=== PATIENT | male | born 1945 | race Caucasian/White ===

== ENCOUNTER 2019-08-23 18:49 | Emergency (ER) | payer MEDICARE, OTHER, SELFPAY ==
[2019-08-23 19:06] VITALS: BP 112/73; PULSE 84; RESP 16; TEMP 36.1; O2SAT 98; BMI 23.1
--- NOTE | 2019-08-23 19:46 | ED_ITS ---
HPI - General Adult General Chief complaint: Diabetic Problem Stated complaint: thinks reaction to diabetes medication Time Seen by Provider: 08/23/19 19:41 Source: patient Mode of arrival: Ambulatory Limitations: no limitations History of Present Illness HPI narrative: Patient is a 73-year-old male here for evaluation of what he thinks is a reaction to his diabetic medication. He is on metformin and Trulicity. Has been on Trulicity for 6 months now. For the past several days he has had nausea and vomiting. This seems to be associated with eating. He states that he is vomiting food that he ate several hours/day prior. Does not seem to be having problems with liquids. Does have some generalized abdominal tenderness. Had labs drawn yesterday ordered by his primary provider for evaluation of this. Also was started on Prilosec which he states is not helping any of his symptoms. He does not have the results of his labs that were drawn yesterday. He states that he was told by his primary provider to stop taking the Trulicity. Patient is also describing lightheadedness with changing positions. He is concerned he is dehydrated Related Data Previous Rx's Medication Instructions Recorded metoclopramide HCl [Reglan] 10 mg PO Q6H PRN #20 tab 08/23/19 sucralfate [Carafate] 10 ml PO QID #420 ml 08/23/19 Review of Systems Constitutional Constitutional: Denies fever(s) Cardiovascular Cardiovascular: Denies chest pain and Denies dyspnea Respiratory Respiratory: Denies dyspnea Gastrointestinal Gastrointestinal: Reports abdominal pain, Denies constipation, Denies diarrhea, Reports nausea and Reports vomiting Genitourinary Genitourinary: Denies dysuria Musculoskeletal Musculoskeletal: Denies myalgias and Denies arthralgias Integumentary/Breasts Skin/Breast: Denies rash Neurologic Neurologic: Denies behavioral changes Psychiatric Psychiatric: Denies behavioral changes Hematologic/Lymphatic Hematologic/Lymphatic: Denies easy bleeding and Denies easy bruising Patient History Medical History Diabetes mellitus (Inactive) Social History Smoking Status: Former smoker Smoking Status: Former smoker alcohol intake frequency: holidays/special occasions only Substance Use Type: does not use Exam Initial Vital Signs Initial Vital Signs: Vital Signs Temperature 97 F L 08/23/19 19:06 Pulse Rate 84 08/23/19 19:06 Respiratory Rate 16 08/23/19 19:06 Blood Pressure 112/73 08/23/19 19:06 Pulse Oximetry 98 08/23/19 19:06 Const General: cooperative, comfortable and well developed Orientation: alert, awake and oriented x3 HENMT Head: normal to inspection and normocephalic Resp Effort & Inspection: normal respiratory effort Auscultation: clear to auscultation bilaterally Cardio Rate: regular rate Rhythm: regular rhythm GI Inspection: non-distended Palpation: soft, No firm and No tender Back/Spine/Pelvis Back: No CVA tenderness Skin Lesions: no lesions Rashes: no rashes Neuro General: alert and awake Cognition: normal cognition Speech: speech normal Sensory Exam: no sensory deficits noted Extrem General: normal to inspection and capillary refill normal Psych Appearance: grossly normal and well kempt Course Orders Ordered: ED Orders 08/23/19 20:15 Lactate (Lactic Acid) Stat 08/23/19 20:47 EKG-12 Lead Stat Discontinued Medications Sodium Chloride (Normal Saline 0.9%) 1,000 mls @ 1,000 mls/hr IV BOLUS ONE Stop: 08/23/19 20:53 Last Infusion: 08/23/19 21:24 Dose: 0 mls/hr Documented by: Admin: 08/23/19 20:22 Dose: 1,000 mls/hr Documented by: KATYA Sucralfate (Carafate) 1 gm PO NOW ONE Stop: 08/23/19 22:13 Last Admin: 08/23/19 22:31 Dose: 1 gm Documented by: KATYA Vital Signs Vital signs: Vital Signs - 8 hr 08/23/19 21:51 08/23/19 22:00 Pulse Rate 76 79 Respiratory Rate 17 17 Blood Pressure [Right Arm] 141/74 H 137/78 Pulse Oximetry 94 97 Medical Decision Making Medical Records Medical records reviewed: Yes I reviewed the patient's medical records. Lab Data Lab results reviewed: Yes I reviewed the patient's lab results. Labs: Lab Results 08/23/19 Range/Units 20:15 Lactate 1.2 (0.7-2.1) mmol/L Point of Care Testing Glucose POC 147 Point of care testing: Point of Care Testing Glucose POC 147 ECG Data Attestation: I personally reviewed and interpreted this ECG as follows: Prior ECG tracings: not available for review Interpretation: Sinus rhythm Ventricular rate is 60 First degree AV block as needed oval to 1 6 milliseconds Normal QRS Normal QTC No ST T wave changes MDM Narrative Medical decision making narrative: Was able to obtain the patient's lab results dated 08/22/2019. Had a sodium 134, potassium 3.5, chloride 86, CO2 32, BUN 28, creatinine 1.4, glucose 149, total bilirubin 1.4, AST 37, ALT 50, alk-phos 85, TSH 2.42, lipase 20, WBC 13, hemoglobin 15.5, hematocrit 46.5, platelets 198. Since we're able to review patient's labs from 1 day ago they were not repeated this evening. A lactate was added which was unremarkable. His labs are relatively unremarkable. Does have a leukocytosis but has also been vomiting for the past couple days. There's no signs of a specific infection. He has no signs of pancreatitis. He does describe some symptoms concerning for gastroparesis. I did discuss this with him. I did inform him that definitive diagnosis of this would have to be made by either his primary doctor or GI doctor after more specific workup. I did encourage him to continue to take the Prilosec. He is going to stop his Trulicity per his primary doctor's recommendation. Will also send him home on Carafate. Does appear that his primary doctor potentially wanted to start him on this medication per the patient's report however he was started on Prilosec instead. We are also attempt to Reglan to see if this does not improve his symptoms of well. I feel we can hold on CT scan for now given his physical exam. He was given return precautions and follow-up instructions. Both he and his family who are at bedside expressed understanding and agreement with plan. 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 insulin use status Diabetes mellitus complication status: with other specified complication Qualified Code(s): E11.69 - Type 2 diabetes mellitus with other specified complication Vomiting Qualifiers: Vomiting type: unspecified Vomiting Intractability: unspecified Nausea presence: unspecified Qualified Code(s): R11.10 - Vomiting, unspecified Abdominal pain Qualifiers: Abdominal location: unspecified location Qualified Code(s): R10.9 - Unspecified abdominal pain Discharge Date/Time: 08/23/19 22:35 Instructions: DI for Gastroparesis Activity Restrictions/Additional Instructions: Recommend that you start the medications and make the medication changes like we discussed. Contact your primary doctor tomorrow for follow-up. Like we discussed you can contact 360 help you find a primary provider here in the [place] area Prescriptions: New sucralfate [Carafate] 100 mg/mL suspension 10 ml PO QID Qty: 420 RF: 0 metoclopramide HCl [Reglan] 10 mg tablet 10 mg PO Q6H PRN (Reason: nausea and vomiting) Qty: 20 RF: 0 Referrals: Rory Muñoz MD [Primary Care Provider] -
[2019-08-23] MEDS: SODIUM CHLORIDE 0.9% 1,000 ML 1000 ML IV (20:22)
[2019-08-23 20:28] VITALS: BP 140/65; PULSE 71; RESP 17; O2SAT 99
[2019-08-23 20:34] LABS: Lactate (Lactic Acid) 1.2 mmol/L (0.7-2.1)
[2019-08-23 21:51] VITALS: BP 141/74; PULSE 76; RESP 17; O2SAT 94
[2019-08-23 22:00] VITALS: BP 137/78; PULSE 79; RESP 17; O2SAT 97
[2019-08-23] MEDS: SUCRALFATE 1 GM/10 ML ORAL SUSP PO (22:31)
== END 2019-08-23 22:35 | disposition home or self-care (01) ==
PROVIDERS: Emergency Provider Emergency Medicine; PCP Family Medicine
DX: R11.2 Nausea with vomiting, unspecified (principal); R10.84 Generalized abdominal pain; I44.30 Unspecified atrioventricular block; E11.69 Type 2 diabetes mellitus with other specified complication; Z79.84 Long term (current) use of oral hypoglycemic drugs
CPT/HCPCS: 36415; 82962; 83605; 93005; 96360; 99284

== ENCOUNTER 2019-09-09 12:46 | Emergency (ER) | payer MEDICARE, OTHER, SELFPAY ==
[2019-09-09 13:00] VITALS: BP 98/65; PULSE 108; RESP 20; TEMP 36.1; O2SAT 97; BMI 22.4
[2019-09-09 13:48] LABS: Add Manual Diff / Slide Review NO; Basophils Absolute Auto 0 /uL (0-100); Basophils Percent Auto 0.4 % (0-2); Eosinophils Absolute Auto 0 /uL (0-450); Eosinophils Percent Auto 0.6 % (2-4); Hematocrit 42.9 % (41-53); Hemoglobin 14.6 g/dL (13.5-17.5); Lymphocytes Absolute Auto 1600 /uL (1100-4500); Lymphocytes Percent Auto 20.1 % (25-40); Mean Corpuscular Hemoglobin 31.2 PG (26-34); Mean Corpuscular Volume 91.7 fL (80-100); Monocytes Absolute Auto 600 /uL (0-900); Monocytes Percent Auto 8.2 % (3-14); Neutrophils Absolute Auto 5600 /uL (1500-7000); Neutrophils Percent Auto 70.7 % (50-75); Platelet Count 200 X10^3/uL (150-400); Red Blood Cell Count 4.68 X10^6/uL (4.5-5.9); Red Cell Distribution Width 12.9 % (11.6-14.8); White Blood Cell Count 7.9 X10^3/uL (4.5-11.0)
--- NOTE | 2019-09-09 13:54 | ED_ITS ---
HPI - Nausea/Vomiting/Diarrhea General Chief complaint: Nausea/Vomiting/Diarrhea Stated complaint: Per phys weak/ vomiting/ needs fluids Time Seen by Provider: 09/09/19 13:26 Source: patient and family Mode of arrival: Ambulatory Limitations: no limitations History of Present Illness HPI Narrative: Patient is a 73-year-old male with history of diabetes presenting with persistent nausea and vomiting ongoing for about a month or 2 he has lost 40 lb. Initially thought to be due to a diabetic medication which he was started on. However he stopped that on the of the year. He continues to feel like he just is not digesting his food. He did eat some fish yesterday but didn't feel well afterwards. Today he vomited up pieces of food from yesterday's meal. He does have bowel movements but they're very small. He overall is extremely weak and tired he feels frequently nauseous every time he eats or drinks anything. He has Reglan at home which he has been trying to take and it isn't helping. He was able to get a boost down him today. He does seem to drink some liquids but eating any food is a challenge. He denies any fever or chills he has no abdominal pain. He has been referred to GI and is scheduled for an EGD in 3 days. Related Data Previous Rx's Medication Instructions Recorded metoclopramide HCl [Reglan] 10 mg PO Q6H PRN #20 tab 08/23/19 sucralfate [Carafate] 10 ml PO QID #420 ml 08/23/19 Allergies Allergy/AdvReac Type Severity Reaction Status Date / Time amoxicillin Allergy Verified 09/09/19 13:06 Review of Systems Review of Systems ROS Unobtainable: All systems reviewed & are unremarkable except as noted in HPI and below Constitutional Constitutional: Denies chills, Denies fever(s), Denies lethargy, Reports poor appetite, Reports weakness and Reports weight loss (40 lb in 1-2 months) Eyes Eyes: Denies change in vision, Denies eye discharge, Denies irritation and Denies loss of vision ENT Ears, Nose, Mouth, and Throat: Denies change in voice, Denies neck pain and Denies sore throat Cardiovascular Cardiovascular: Denies chest pain, Denies irregular heart rhythm, Denies lightheadedness, Denies palpitations, Denies dyspnea, Denies dyspnea on exertion and Denies orthopnea Respiratory Respiratory: Denies cough, Denies dyspnea, Denies dyspnea on exertion and Denies wheezing Gastrointestinal Gastrointestinal: Reports as per HPI Genitourinary Genitourinary: Denies hematuria, Denies flank pain, Denies urinary incontinence and Denies urinary urgency Musculoskeletal Musculoskeletal: Denies neck pain Integumentary/Breasts Skin/Breast: Denies pruritus, Denies erythema, Denies rash and Denies wounds Neurologic Neurologic: Denies loss of vision and Reports weakness Endocrine Endocrine: Denies palpitations Allergic/Immunologic Allergic/Immunologic: Denies wheezing Patient History Medical History Diabetes mellitus (Inactive) Social History Smoking Status: Former smoker Smoking Status: Former smoker alcohol intake frequency: holidays/special occasions only Substance Use Type: does not use Exam Initial Vital Signs Initial Vital Signs: Vital Signs Temperature 97.0 F L 09/09/19 13:00 Pulse Rate 108 H 09/09/19 13:00 Respiratory Rate 09/09/19 13:00 Blood Pressure 98/65 09/09/19 13:00 Pulse Oximetry 97 09/09/19 13:00 GENERAL: Thin appearing male no acute distress HEENT: Head atraumatic,EOMI, pupils reactive, face symmetric, moist mucous membranes CARDIOVASCULAR: Regular rate and rhythm without murmurs, rubs or gallops. RESPIRATORY: Breath sounds equal bilaterally, no wheezes rales or rhonchi. ABDOMEN: Soft, nontender. Normoactive bowel sounds all 4 quadrants. No guarding or rebound. EXTREMITIES: Normal range of motion, no clubbing or edema. Neurovascularly intact NEUROLOGICAL: Alert and oriented x4.Normal gait and speech. Cranial nerves II through XII grossly intact. SKIN: Warm, dry, no laceration, no petechiae, no rashes or lesions. Course Orders Ordered: ED Orders 09/09/19 13:40 Complete Blood Count AUTO DIFF Stat Comprehensive Metabolic Panel Stat Lipase Stat Partial Thromboplastin Time Stat Prothrombin Time INR Stat 09/09/19 13:48 Urine Microscopic Stat 09/09/19 14:03 CT abdomen pelvis w con Stat Discontinued Medications Sodium Chloride (Normal Saline 0.9%) 1,000 mls @ 1,000 mls/hr IV BOLUS ONE Stop: 09/09/19 15:02 Last Infusion: 09/09/19 15:45 Dose: 0 mls/hr Documented by: Admin: 09/09/19 14:13 Dose: 1,000 mls/hr Documented by: BUSHRA Pantoprazole Sodium (Protonix) 40 mg IV NOW ONE Stop: 09/09/19 14:04 Last Admin: 09/09/19 14:14 Dose: 40 mg Documented by: BUSHRA Consultations Consultation #1: Dr. Batista, hospitalist at [facility] has been updated on patient's symptoms and results Time: 15:55 Vital Signs Vital signs: Vital Signs - 8 hr 09/09/19 13:00 09/09/19 15:00 09/09/19 16:30 Temperature 97.0 F L Pulse Rate 108 H 78 67 Respiratory Rate 20 16 18 Blood Pressure 98/65 Blood Pressure [Left Arm] 124/76 143/70 H Pulse Oximetry 97 97 98 MDM - Nausea/Vomiting/Diarrhea Lab Data Attestation: I reviewed the patient's lab results. Result diagrams: 09/09/19 13:40 09/09/19 13:40 Labs: Lab Results 09/09/19 09/09/19 09/09/19 Range/Units 13:40 13:40 13:40 WBC 7.9 (4.5-11.0) X10^3/uL RBC 4.68 (4.5-5.9) X10^6/uL Hgb 14.6 (13.5-17.5) g/dL Hct 42.9 (41-53) % MCV 91.7 (80-100) fL MCH 31.2 (26-34) PG MCHC 34.0 (30-36) % RDW 12.9 (11.6-14.8) % Plt Count 200 (150-400) X10^3/uL Neut % (Auto) 70.7 (50-75) % Lymph % (Auto) 20.1 L (25-40) % [place] % (Auto) 8.2 (3-14) % Eos % (Auto) 0.6 L (2-4) % Baso % (Auto) 0.4 (0-2) % Neut # (Auto) 5600 (7962-5147) /uL Lymph # (Auto) 1600 (0878-6623) /uL [place] # (Auto) 600 (0-900) /uL Eos # (Auto) 0 (0-450) /uL Baso # (Auto) 0 (0-100) /uL PT 15.0 H (10.1-12.7) SECONDS INR 1.3 (0.9-1.3) APTT 37 H (26.4-36.2) SECONDS Sodium 138 (137-145) mmol/L Potassium 4.3 (3.4-5.1) mmol/L Chloride 95 L (98-107) mmol/L Carbon Dioxide 26 (22-32) mmol/L BUN 25 H (9-20) mg/dL Creatinine 1.10 (0.66-1.25) mg/dL Estimated GFR > 60.0 (>60) mL/min BUN/Creatinine Ratio 22.7 H (6-22) Glucose 112 H (80-110) mg/dL Calcium 10.6 H (8.4-10.2) mg/dL Total Bilirubin 0.9 (0.2-1.3) mg/dL AST 42 (17-59) IU/L ALT 43 (<50) IU/L Alkaline Phosphatase 83 (38-126) U/L Total Protein 8.2 (6.3-8.2) g/dL Albumin 4.7 (3.5-5.0) g/dL Globulin 3.5 (1.7-4.1) g/dL Albumin/Globulin Ratio 1.3 (1.0-2.8) Lipase 17 L (23-300) U/L Urine RBC (0-5/HPF) Urine WBC (0-5/HPF) Ur Squamous Epith Cells (0-5/HPF) Urine Bacteria (None) Ur Culture Indicated? 09/09/19 Range/Units 13:48 WBC (4.5-11.0) X10^3/uL RBC (4.5-5.9) X10^6/uL Hgb (13.5-17.5) g/dL Hct (41-53) % MCV (80-100) fL MCH (26-34) PG MCHC (30-36) % RDW (11.6-14.8) % Plt Count (150-400) X10^3/uL Neut % (Auto) (50-75) % Lymph % (Auto) (25-40) % [place] % (Auto) (3-14) % Eos % (Auto) (2-4) % Baso % (Auto) (0-2) % Neut # (Auto) (6855-2974) /uL Lymph # (Auto) (5925-2055) /uL [place] # (Auto) (0-900) /uL Eos # (Auto) (0-450) /uL Baso # (Auto) (0-100) /uL PT (10.1-12.7) SECONDS INR (0.9-1.3) APTT (26.4-36.2) SECONDS Sodium (137-145) mmol/L Potassium (3.4-5.1) mmol/L Chloride (98-107) mmol/L Carbon Dioxide (22-32) mmol/L BUN (9-20) mg/dL Creatinine (0.66-1.25) mg/dL Estimated GFR (>60) mL/min BUN/Creatinine Ratio (6-22) Glucose (80-110) mg/dL Calcium (8.4-10.2) mg/dL Total Bilirubin (0.2-1.3) mg/dL AST (17-59) IU/L ALT (<50) IU/L Alkaline Phosphatase (38-126) U/L Total Protein (6.3-8.2) g/dL Albumin (3.5-5.0) g/dL Globulin (1.7-4.1) g/dL Albumin/Globulin Ratio (1.0-2.8) Lipase (23-300) U/L Urine RBC 5-10/hpf H (0-5/HPF) Urine WBC 1-5/hpf (0-5/HPF) Ur Squamous Epith Cells 0-1 /hpf (0-5/HPF) Urine Bacteria None seen (None) Ur Culture Indicated? Cult not indicated Urine Dip Bedside Urine Glucose Negative Bedside Urine Bilirubin + 1 Bedside Urine Ketone +++ 80 Urine Specific [place] 1.025 Bedside Urine Occult Blood ++ Bedside Urine pH 5.5 Bedside Urine Protein + 30 Bedside Urine Urobilinogen +/- 1mg Bedside Urine Nitrite - Negative Bedside Urine Leukocytes - Negative Esterase Imaging Data CT scan - abdomen/pelvis: Radiologist's Impression: PROCEDURE: CT ABDOMEN PELVIS W CON INDICATIONS: persistent nausea with weight loss TECHNIQUE: After the administration of intravenous contrast, 5 mm thick sections acquired from the diaphragm to the symphysis. 5 mm coronal and sagittal reformats were acquired. For radiation dose reduction, the following was used: automated exposure control, adjustment of mA and/or kV according to patient size. COMPARISON: None. FINDINGS: Image quality: Excellent. ABDOMEN: Lung bases: Lung bases are clear. Heart size is normal. Solid organs: Liver is normal in size and enhancement. Gallbladder is di stended. Biliary system is non dilated. Within the head of the pancreas, there is a low-density mass seen, which measures 3.3 x 3.2 buy 3 cm. Enhancing irregular bashir can be seen. The internal density of this mass is 45 Hounsfield units. The pancreas itself is atrophic, with a dilated pancre atic duct that measures 7 mm. The adjacent SMA appears unaffected. No significant abnormality of the SMV or the portal vein can be seen. Spleen is normal in size and enhancement. No adrenal nodules. Kidneys demonstrate normal size and enhancement, without hydronephrosis. Intrapulmonary left k idney, simple appearing cysts are seen. Peritoneum and bowel: The stomach and the proximal duodenum are dilated, with a transition point seen at the level of the head of the pancreas, where there is duodenal wall thickening seen. No other dilated loops of small bowel are seen. Within the pelvis, there is a mdlz-do-fpqliseh amount layering free fluid, which measures 16 Hounsfield units, and is consistent with simple fluid. Bowel wall thickening can be seen involving the sigmoid colon. Mild diverticulosis can be seen within this region. No free air is seen. Nodes and vessels: There is an enlarged gastrohepatic ligament lymph node seen, as on series 2 image 27 measuring 22 x 16 mm in greatest axial dimension. Aorta and inferior vena cava are normal in size. Miscellaneous: No ventral hernias. PELVIS: Genitourinary: Bladder wall thickness is normal. Miscellaneous: No inguinal hernias or adenopathy. Bones: No suspicious bony lesions. No vertebral body compression fractures. Mild levoconvex scoliotic curvature is noted. Age-appropriate bony degenerative gaytan ges are seen, which are worst at the L2-L3 level. IMPRESSION: Pancreatic cancer until proven otherwise. There is a pancreatic head mass with an atrophic pancreas with dilatation of the pancreatic duct. There is wall thickening of the adjacent duodenum, which is consistent with invasion from metastatic spread. At this point, there is a caliber change with partial obstruction of the duodenum. There is an enlarged gastrohepatic ligament lymph node seen, which represents metastatic disease until proven otherwise. A surgical consultation is recommended. Mild layering free peritoneal fluid can be seen within the pelvis1. Incidental note is made of: Simple appearing left renal cysts Focal L2-L3 degenerative change. Mild levoconvex scoliotic curvature. Note: Findings and recommendations discussed by telephone with Dr. Sarmiento at 2:56 PM [employer] time on September 09, 2019. Dictated by: Elias Vargas M.D. on 09/09/2019 at 13:50 MDM Narrative Medical decision making narrative: Patient has new pancreatic mass which is likely cancer is partially obstructing the duodenum. This is likely causing symptoms. At this time he is slightly nauseous but overall is not vomiting and has no pain. I discussed case with Dr. Garsia, surgery at [facility], she recommends patient be transferred for further workup will likely need a stent to at least help with symptoms. I've updated patient and family on CT results and need for transfer. They are agreeable. Discharge Plan Departure Patient Disposition: [facility] Clinical Impression: Mass of pancreas, Duodenal obstruction Discharge Date/Time: 09/09/19 16:55 Prescriptions: No Action sucralfate [Carafate] 100 mg/mL suspension 10 ml PO QID Qty: 420 RF: 0 metoclopramide HCl [Reglan] 10 mg tablet 10 mg PO Q6H PRN (Reason: nausea and vomiting) Qty: 20 RF: 0 Referrals: Brennan Plunkett MD [Primary Care Provider] - Rory Muñoz MD [Non-Staff] -
[2019-09-09 14:01] LABS: INR 1.3 (0.9-1.3)
--- NOTE | 2019-09-09 14:03 | DI.CT.S_ITS ---
PROCEDURE: CT ABDOMEN PELVIS W CON INDICATIONS: persistent nausea with weight loss TECHNIQUE: After the administration of intravenous contrast, 5 mm thick sections acquired from the diaphragm to the symphysis. 5 mm coronal and sagittal reformats were acquired. For radiation dose reduction, the following was used: automated exposure control, adjustment of mA and/or kV according to patient size. COMPARISON: None. FINDINGS: Image quality: Excellent. ABDOMEN: Lung bases: Lung bases are clear. Heart size is normal. Solid organs: Liver is normal in size and enhancement. Gallbladder is distended. Biliary system is non dilated. Within the head of the pancreas, there is a low-density mass seen, which measures 3.3 x 3.2 buy 3 cm. Enhancing irregular bashir can be seen. The internal density of this mass is 45 Hounsfield units. The pancreas itself is atrophic, with a dilated pancreatic duct that measures 7 mm. The adjacent SMA appears unaffected. No significant abnormality of the SMV or the portal vein can be seen. Spleen is normal in size and enhancement. No adrenal nodules. Kidneys demonstrate normal size and enhancement, without hydronephrosis. Intrapulmonary left kidney, simple appearing cysts are seen. Peritoneum and bowel: The stomach and the proximal duodenum are dilated, with a transition point seen at the level of the head of the pancreas, where there is duodenal wall thickening seen. No other dilated loops of small bowel are seen. Within the pelvis, there is a mzdb-zm-deqegzza amount layering free fluid, which measures 16 Hounsfield units, and is consistent with simple fluid. Bowel wall thickening can be seen involving the sigmoid colon. Mild diverticulosis can be seen within this region. No free air is seen. Nodes and vessels: There is an enlarged gastrohepatic ligament lymph node seen, as on series 2 image 27 measuring 22 x 16 mm in greatest axial dimension. Aorta and inferior vena cava are normal in size. Miscellaneous: No ventral hernias. PELVIS: Genitourinary: Bladder wall thickness is normal. Miscellaneous: No inguinal hernias or adenopathy. Bones: No suspicious bony lesions. No vertebral body compression fractures. Mild levoconvex scoliotic curvature is noted. Age-appropriate bony degenerative changes are seen, which are worst at the L2-L3 level. IMPRESSION: Pancreatic cancer until proven otherwise. There is a pancreatic head mass with an atrophic pancreas with dilatation of the pancreatic duct. There is wall thickening of the adjacent duodenum, which is consistent with invasion from metastatic spread. At this point, there is a caliber change with partial obstruction of the duodenum. There is an enlarged gastrohepatic ligament lymph node seen, which represents metastatic disease until proven otherwise. A surgical consultation is recommended. Mild layering free peritoneal fluid can be seen within the pelvis1. Incidental note is made of: Simple appearing left renal cysts Focal L2-L3 degenerative change. Mild levoconvex scoliotic curvature. Note: Findings and recommendations discussed by telephone with Dr. Sarmiento at 2:56 PM Central time on September 09, 2019. Dictated by: Elias Vargas M.D. on 09/09/2019 at 13:50 Approved by: Elias Varags M.D. on 09/09/2019 at 13:59
[2019-09-09 14:04] LABS: PTT Partial Thromboplastin Tim 37 SECONDS (26.4-36.2)
[2019-09-09 14:06] LABS: Alanine Aminotransferase 43 IU/L (<50); Albumin 4.7 g/dL (3.5-5.0); Albumin Globulin Ratio 1.3 (1.0-2.8); Alkaline Phosphatase 83 U/L (38-126); Aspartate Aminotransferase 42 IU/L (17-59); BUN Creatinine Ratio 22.7 (6-22); Bilirubin Total 0.9 mg/dL (0.2-1.3); Blood Urea Nitrogen 25 mg/dL (9-20); Calcium 10.6 mg/dL (8.4-10.2); Carbon Dioxide 26 mmol/L (22-32); Chloride 95 mmol/L (98-107); Estimated Glomerular Filt Rate > 60.0 mL/min (>60); Globulin 3.5 g/dL (1.7-4.1); Glucose 112 mg/dL (80-110); HEMOLYSIS < 15 (0-50); Lipase 17 U/L (23-300); Potassium 4.3 mmol/L (3.4-5.1); Sodium 138 mmol/L (137-145); Total Protein 8.2 g/dL (6.3-8.2)
[2019-09-09] MEDS: SODIUM CHLORIDE 0.9% 1,000 ML 1000 ML IV (14:13)
[2019-09-09] MEDS: PANTOPRAZOLE 40 MG VIAL IV (14:14)
[2019-09-09 14:39] LABS: Bacteria Urine None Seen
[2019-09-09 14:46] LABS: Culture Indicated Urine Cult Not Indicated; RBC Urine 5-10/HPF (0-5/HPF); Squamous Epithelial Cell Urine 0-1 /HPF (0-5/HPF); WBC Urine 1-5/HPF (0-5/HPF)
[2019-09-09 15:00] VITALS: BP 124/76; PULSE 78; RESP 16; O2SAT 97
[2019-09-09 16:30] VITALS: BP 143/70; PULSE 67; RESP 18; O2SAT 98
== END 2019-09-09 16:55 | disposition short-term general hospital (02) ==
PROVIDERS: Emergency Provider Emergency Medicine; PCP Internal Medicine
DX: K86.89 Other specified diseases of pancreas (principal); K31.5 Obstruction of duodenum
CPT/HCPCS: 36415; 74177; 80053; 81003; 81015; 83690; 85025; 85610; 85730; 96361; 96374; 99284; C9113; Q9967